=== PATIENT | female | born 1980 | race Caucasian/White ===

== ENCOUNTER → 2016-11-23 | Outpatient (CLI) | payer BC ==
--- NOTE | ~2016-11-23 | CT16 ---
[facility] A Service of [facility] [place] RADIOLOGY TEXT RESULTS PATIENT: DONI FENTON LOCATION: [facility] : 76 UNIT #: [id number] AGE: [address]: Jc Fierro MD SEX: F ORDER DR: [id number] [facility] [address] [place], [place] [address] [id number] O MR#: [id number] #: [id number] NAME: DONI FENTON : 1980 SEX: F STUDY DATE/TIME: 11/23/2016 09:15 UNIT: [facility] ROOM: STUDY DESCRIPTION: CT Angio Chest for PE Attending Physician: Jc Fierro M.D. Referring Physician: Jc Fierro M.D. Ordering Physician: Jc Fierro M.D. Primary Care Physician: [facility] MEDICAL IMAGING REPORT This report is preliminary unless electronic signature is present EXAM CT angiogram of the chest with PE protocol 11/23/2016 0915 hours HISTORY 36-year-old woman with history of asthma complaining of chest tightness for 1 month. COMPARISON None. TECHNIQUE Dynamic helical CT angiographic images were obtained from the thoracic inlet through the adrenal glands. 3-D sagittal and coronal reconstructions were performed. Contrast was Isovue-370 100 mL IV. Total exam DLP 985 mGy-cm. This CT examination was performed with one or more of the following radiation dose reduction techniques: automatic exposure control, adjustment of mA and/or kV according to patient size, and iterative reconstruction. FINDINGS Images through the thoracic inlet demonstrate a small benign calcification in left lobe of thyroid. There is no thyromegaly or adenopathy. Images through the chest demonstrate moderately good opacification of the pulmonary arteries. There is some motion artifact. There is no enlargement of the pulmonary arteries. There are no filling defects seen to suggest the presence of pulmonary emboli. The aorta is well opacified and normal in caliber. There is no dissection. Cardiac chambers and pericardium are normal. The esophagus is normal. Lung window images demonstrate clear lungs. Limited views through the upper abdomen demonstrate a normal appearance to [facility] A Service of [facility] [place] RADIOLOGY TEXT RESULTS PATIENT: DONI FENTON LOCATION: [facility] : 76 UNIT #: [id number] AGE: [address]: Jc Fierro MD SEX: F ORDER DR: the liver and spleen. There may be a tiny gallstone in the gallbladder. There is no gallbladder wall thickening. The adrenal glands are normal. IMPRESSION 1. No evidence of pulmonary embolism. 2. Normal aorta. 3. The lungs are clear and there is no pleural effusion. 4. Probable tiny gallstone in the gallbladder without evidence of cholecystitis or bile duct dilatation. STAT * RESULT Dictated by... Kell Terrell M.D. THIS IS AN ELECTRONICALLY VERIFIED REPORT Kell Terrell M.D. at 11/24/2016 2:31 PM DANITA/viviana TD: 11/23/2016 10:45 JOB #: [id number] MEDICAL IMAGING REPORT Page 1 of 1 COPY
== END | disposition home or self-care (01) ==
LOC: CCAT 08:36
DX: J45.909 Unspecified asthma, uncomplicated (principal)
CPT/HCPCS: 71275; Q9967